=== PATIENT | female | born 1950 | race Caucasian/White ===

== ENCOUNTER 2020-09-03 16:05 | Emergency (ER) | payer OTHER ==
[~2020-09-03] VITALS: Ht 170.2 cm; Wt 81.7 kg
[2020-09-03] MEDS ORDERED: ATORVASTATIN CA20 MG PO (16:43)
[2020-09-03] MEDS ORDERED: LOSARTAN-HCTZ1 EAC5 PO (16:43)
[2020-09-03] MEDS ORDERED: Percocet 5-3251 EACH PO (18:25)
[2020-09-03] MEDS ORDERED: KEFLEX500 MG PO (18:25)
== END 2020-09-03 19:04 | disposition home or self-care (01) ==
LOC: ER 16:05
DX: S63.292A Dislocation of distal interphalangeal joint of right middle finger, initial encounter (principal); S61.212A Laceration without foreign body of right middle finger without damage to nail, initial encounter; I10 Essential (primary) hypertension; E78.00 Pure hypercholesterolemia, unspecified; W31.82XA Contact with other commercial machinery, initial encounter
CPT/HCPCS: 73120; 99282-25; A9270-GY

== ENCOUNTER → 2022-04-28 | Outpatient (CLI) | payer OTHER ==
[~2022-04-28] MED LIST: ATORVASTATIN CA20 MG PO; KEFLEX500 MG PO; LOSARTAN-HCTZ1 EAC5 PO; Percocet 5-3251 EACH PO
== END | disposition home or self-care (01) ==
LOC: LAB SHORT 12:13 → PLD 12:13
DX: L57.0 Actinic keratosis (principal)
CPT/HCPCS: 88305

== ENCOUNTER 2022-11-23 11:08 | Day surgery (SDC) | payer OTHER ==
[~2022-11-23] VITALS: Ht 170.2 cm; Wt 88.0 kg
[2022-11-23] MEDS ORDERED: Imitrex100 MG PO (11:41)
[2022-11-23] MEDS ORDERED: NAPR220 PO (12:16)
[2022-11-23] MEDS ORDERED: IBUP400 (12:18)
--- NOTE | 2022-11-23 13:04 | NUR ---
11/23/22 1304 Nimesh Agarwal 30MLS ROPIVICAINE 0.5% MIXED WITH 0.15MLS OF EPI 1MG/ML TO CREATE A SOLUTION OF ROPIVICAINE 0.5% WITH EPI 1:200,000
--- NOTE | 2022-11-23 15:21 | NUR ---
11/23/22 1521 [facility] ORAL PAIN MEDICINE GIVEN PER DR GIBBS ORDERS.
== END 2022-11-23 16:05 | disposition home or self-care (01) ==
LOC: ORSCSDS 11:08
PROVIDERS: Podiatrist Foot & Ankle Surgery
PROC: 0QSN04Z Reposition Right Metatarsal with Internal Fixation Device, Open Approach (ICD-10-PCS; principal; 2022-11-23 12:30)
PROC: 0SGM04Z Fusion of Right Metatarsal-Phalangeal Joint with Internal Fixation Device, Open Approach (ICD-10-PCS; principal; 2022-11-23 12:30)
DX: M20.11 Hallux valgus (acquired), right foot (principal); M77.40 Metatarsalgia, unspecified foot; M79.673 Pain in unspecified foot; I10 Essential (primary) hypertension; Z87.891 Personal history of nicotine dependence; Z79.899 Other long term (current) drug therapy
CPT/HCPCS: A9270; C1713; C1769; J0171; J0690; J1100; J1885; J2001; J2370; J2405; J2704; J2795; J3010; J7120

== ENCOUNTER 2023-11-26 06:30 | Day surgery (SDC) | payer OTHER ==
[~2023-11-26] VITALS: Ht 172.7 cm; Wt 89.0 kg
[~2023-11-26 06:30] MED LIST changes: +IBUP400; +Imitrex100 MG PO; +LOSARTAN POTAS100 M1; +NAPR220 PO
[2023-11-26] MEDS ORDERED: Diovan320 MG (06:52)
--- NOTE | 2023-11-26 09:23 | NUR ---
11/26/23 0923 DAYSI EARLY PT CRYING WHEN ENTERS PACU. PT STATES THAT SHE ALWAYS DEEJAY AFTER SURGERY. DR LEVINE GAVE ORDER FOR ATIVAN. WILL GO TO PHARMACY FOR MED.
--- NOTE | 2023-11-26 09:45 | NUR ---
11/26/23 0945 DAYSI EARLY WILL KEEP PT IN BED FOR STAY IN SDU- LEG ELEVATED. PT JUST CAME IN- STANDING BY BED
[2023-11-26 10:06] VITALS: BP 141/91
== END 2023-11-26 10:28 | disposition home or self-care (01) ==
LOC: ORSCSDS 06:30
PROVIDERS: Podiatrist Foot & Ankle Surgery
PROC: 0QSP04Z Reposition Left Metatarsal with Internal Fixation Device, Open Approach (ICD-10-PCS; principal; 2023-11-26 07:30)
PROC: 0SGN04Z Fusion of Left Metatarsal-Phalangeal Joint with Internal Fixation Device, Open Approach (ICD-10-PCS; principal; 2023-11-26 07:30)
PROC: 0SGQ04Z Fusion of Left Toe Phalangeal Joint with Internal Fixation Device, Open Approach (ICD-10-PCS; principal; 2023-11-26 07:30)
DX: M20.12 Hallux valgus (acquired), left foot (principal); M77.40 Metatarsalgia, unspecified foot; M20.5X2 Other deformities of toe(s) (acquired), left foot; M20.42 Other hammer toe(s) (acquired), left foot; I10 Essential (primary) hypertension; G47.33 Obstructive sleep apnea (adult) (pediatric); Z79.899 Other long term (current) drug therapy
CPT/HCPCS: A9270; C1713; C1769; J0171; J0690; J1100; J2060; J2371; J2405; J2704; J2795; J3010; J7120